=== PATIENT | female | born 1995 | race Caucasian/White ===

== ENCOUNTER 2016-09-15 17:46 | Emergency (ER) | payer MEDICAID ==
[~2016-09-15] VITALS: Ht 165.1 cm; Wt 78.0 kg
[~2016-09-15 17:46] MED LIST: HYDR115S2 PO; PREN1TAB60 PO
[2016-09-15] MEDS ORDERED: LORazepam 2 MG/ML, 1ML IVPush ONE (19:00)
[2016-09-15] MEDS ORDERED: SODIUM CHLORIDE FLUSH 10ML SYR IVF ONE (19:00)
[2016-09-15] MEDS ORDERED: KETOROLAC 30 MG/1 ML IVPush ONE (19:00)
[2016-09-15 19:14] LABS: BLOOD UREA NITROGEN 9 mg/dL (7-18)
[2016-09-15] MEDS ORDERED: KETOROLAC 30 MG/1 ML ONE (19:28)
[2016-09-15] MEDS ORDERED: LORazepam 2 MG/ML, 1ML ONE (19:29)
[2016-09-15 19:46] VITALS: BP 124/73
== END 2016-09-15 20:17 | disposition home or self-care (01) ==
LOC: ED 20:09
DX: O26.891 Other specified pregnancy related conditions, first trimester (principal); M94.0 Chondrocostal junction syndrome [Tietze]
CPT/HCPCS: 36415; 71010; 80048; 82040; 84484; 84703; 85025; 85379; 93005

== ENCOUNTER 2017-08-14 00:12 | Emergency (ER) | payer MEDICAID ==
[~2017-08-14] VITALS: Ht 165.1 cm; Wt 79.5 kg
[2017-08-14 00:39] LABS: MICROSCOPIC AUTO
[2017-08-14 00:40] LABS: CULTURE INDICATED? YES
[2017-08-14 00:49] LABS: HCG UR SG 1.025 (1.003-1.030)
[2017-08-14] MEDS ORDERED: PHENAZOPYRIDINE 200 MG TABLET PO ONE (01:00)
[2017-08-14] MEDS ORDERED: PHENAZOPYRIDINE 200 MG TABLET ONE (01:35)
[2017-08-14 01:36] VITALS: BP 121/82
== END 2017-08-14 01:39 | disposition home or self-care (01) ==
LOC: ED 00:56
DX: R10.30 Lower abdominal pain, unspecified (principal); N39.0 Urinary tract infection, site not specified
CPT/HCPCS: 81001; 81025; 87086; 99284

== ENCOUNTER 2018-07-03 18:44 | Emergency (ER) | payer MEDICAID ==
[~2018-07-03] VITALS: Ht 162.6 cm; Wt 77.3 kg
[2018-07-03 19:19] LABS: BASOPHILS # (AUTO) 0.03 x10^3/uL (0-0.1); BASOPHILS % (AUTO) 0 % (0-1); EOSINOPHILS # (AUTO) 0.14 x10^3/uL (0-0.4); EOSINOPHILS % (AUTO) 1 % (1-7); LYMPHOCYTES # (AUTO) 2.96 x10^3/uL (1-3.4); LYMPHOCYTES % (AUTO) 27 % (22-44); MD NO; MEAN CORPUSCULAR HEMOGLOBIN 26.8 pg (27.0-34.8); MEAN CORPUSCULAR HGB CONC 33.4 g/dL (32.4-35.8); MEAN CORPUSCULAR VOLUME 80.3 fL (80-100); MEAN PLATELET VOLUME 8.5 fL (7.4-10.4); MONOCYTES # (AUTO) 0.43 x10^3/uL (0.2-0.8); MONOCYTES % (AUTO) 4 % (2-9); NEUTROPHILS # (AUTO) 7.54 x10^3/uL (1.8-6.8); NEUTROPHILS % (AUTO) 68 % (42-75); PLATELET COUNT 350 x10^3/uL (130-400); RED BLOOD COUNT 4.77 x10^6/uL (3.82-5.3); RED CELL DISTRIBUTION WIDTH 17.5 % (9.6-15.2)
[2018-07-03 19:30] LABS: ANION GAP 8 mmol/L (5-15); CALCIUM 8.9 mg/dL (8.5-10.1); CHLORIDE 109 mmol/L (98-107); CREATININE 0.63 mg/dL (0.55-1.02)
--- NOTE | 2018-07-03 19:33 | NUR ---
PT AMBULATED TO BR WITHOUT DIFFICULTY. INSTRUCTED ON CLEAN CATCH URINE SAMPLE.
--- NOTE | 2018-07-03 19:55 | NUR ---
RV'WD POC WITH PT, SHE VERBALIZES UNDERSTANDING. REPORTS SOME ABD PAIN AT 6/10.
[2018-07-03 20:03] LABS: MICROSCOPIC NOT IND
[2018-07-03 20:08] LABS: CULTURE INDICATED? NO
[2018-07-03 21:43] VITALS: BP 120/74
--- NOTE | 2018-07-03 21:44 | NUR ---
D/C INSTRUCTIONS, MEDS & F/U APPT RV'WD WITH PT, SHE VERBALIZES UNDERSTANDING. AMBULATED OUT OF ED WITHOUT DIFFICULTY.
== END 2018-07-03 21:46 | disposition home or self-care (01) ==
LOC: ED 21:24
DX: O26.891 Other specified pregnancy related conditions, first trimester (principal); Z3A.01 Less than 8 weeks gestation of pregnancy
CPT/HCPCS: 36415; 76801; 80048; 81003; 82040; 84702; 85025; 86901; 99284

== ENCOUNTER 2018-07-05 18:11 | Emergency (ER) | payer MEDICAID ==
[~2018-07-05] VITALS: Ht 162.6 cm; Wt 77.0 kg
--- NOTE | 2018-07-05 18:43 | NUR ---
Pt reports abd pain starting 2-3 days ago and VB starting today, approx 6 pads used today. Reports aprox 5-6 weeks preg. States she took plan B and had depo shot during this , pt reports abd distention starting today after bleeding started.
--- NOTE | 2018-07-05 19:03 | NUR ---
report received from jill lugo.
--- NOTE | 2018-07-05 19:25 | NUR ---
pt in [facility] now.
--- NOTE | 2018-07-05 19:45 | NUR ---
pt back to room from [facility].
[2018-07-05 20:27] VITALS: BP 118/67
--- NOTE | 2018-07-05 20:39 | NUR ---
pt resting in [facility]. pt's aox4. resps even and unlabored. bp/spo2 monitors in place. call light within reach.
--- NOTE | 2018-07-05 21:15 | NUR ---
pt given dc instructions. pt's aox4. resps even and unlabored. pt amb to dc with steady gait. no acute distress at dc.
== END 2018-07-05 21:16 | disposition home or self-care (01) ==
LOC: ED 18:42
DX: O20.0 Threatened abortion (principal)
CPT/HCPCS: 36415; 76801; 84702; 99284

== ENCOUNTER 2018-07-12 19:49 | Emergency (ER) | payer MEDICAID ==
[~2018-07-12] VITALS: Ht 162.6 cm; Wt 77.7 kg
--- NOTE | 2018-07-12 20:40 | NUR ---
PT IN GOWN IN [facility]. EBONIE CAMARILLO AT BEDSIDE WITH PT AT THIS TIME. PT ATTACHED TO VS MACHINES. VSS. AWAITING NEW ORDERS AT THIS TIME
[2018-07-12] MEDS ORDERED: ONDANSETRON ODT 4 MG PO ONE (21:00)
[2018-07-12 21:05] LABS: BASOPHILS % (AUTO) 1 % (0-1); EOSINOPHILS # (AUTO) 0.17 x10^3/uL (0-0.4); EOSINOPHILS % (AUTO) 1 % (1-7); LYMPHOCYTES # (AUTO) 3.19 x10^3/uL (1-3.4); LYMPHOCYTES % (AUTO) 24 % (22-44); MD NO; MEAN CORPUSCULAR HEMOGLOBIN 26.3 pg (27.0-34.8); MEAN CORPUSCULAR HGB CONC 32.1 g/dL (32.4-35.8); MEAN CORPUSCULAR VOLUME 81.9 fL (80-100); MEAN PLATELET VOLUME 8.8 fL (7.4-10.4); MONOCYTES # (AUTO) 0.88 x10^3/uL (0.2-0.8); MONOCYTES % (AUTO) 7 % (2-9); NEUTROPHILS # (AUTO) 8.95 x10^3/uL (1.8-6.8); NEUTROPHILS % (AUTO) 67 % (42-75); PLATELET COUNT 287 x10^3/uL (130-400); RED BLOOD COUNT 4.57 x10^6/uL (3.82-5.3); RED CELL DISTRIBUTION WIDTH 17.1 % (9.6-15.2)
[2018-07-12 21:16] LABS: ALANINE AMINOTRANSFERASE 21 U/L (12-78); ALBUMIN 3.5 g/dL (3.4-5.0); ANION GAP 6 mmol/L (5-15); CALCIUM 8.9 mg/dL (8.5-10.1); CHLORIDE 111 mmol/L (98-107); CREATININE 0.57 mg/dL (0.55-1.02)
[2018-07-12 21:34] LABS: ALKALINE PHOSPHATASE 56 U/L (45-117); BILIRUBIN,TOTAL 0.1 mg/dL (0.2-1.0); TOTAL PROTEIN 7.1 g/dL (6.4-8.2)
[2018-07-12] MEDS ORDERED: ONDANSETRON ODT 4 MG ONE (21:46)
--- NOTE | 2018-07-12 21:53 | NUR ---
pt medicated per mar.
[2018-07-12 22:47] LABS: MICROSCOPIC AUTO
[2018-07-12 22:49] LABS: CULTURE INDICATED? YES
[2018-07-12 22:52] VITALS: BP 118/71
== END 2018-07-12 23:09 | disposition home or self-care (01) ==
LOC: ED 19:51
DX: O21.0 Mild hyperemesis gravidarum (principal); Z3A.01 Less than 8 weeks gestation of pregnancy
CPT/HCPCS: 36415; 80053; 81001; 84702; 85025; 87086; 93005; 99284; Q0162

== ENCOUNTER 2020-02-06 13:55 | Emergency (ER) | payer MEDICAID ==
[~2020-02-06] VITALS: Ht 162.6 cm; Wt 73.0 kg
[~2020-02-06 13:55] MED LIST changes: +PREN1TAB98 PO
[2020-02-06] MEDS ORDERED: HYDROcodone/APAP 5/325 TABLET PO ONE (15:00)
[2020-02-06] MEDS ORDERED: IBUPROFEN 600 MG TABLET PO ONE (15:00)
[2020-02-06] MEDS ORDERED: IBUPROFEN 600 MG TABLET ONE (15:02)
[2020-02-06] MEDS ORDERED: HYDROcodone/APAP 5/325 TABLET ONE (15:02)
--- NOTE | 2020-02-06 15:06 | NUR ---
First contact, pt back from xray. Medicated for right hip pain per order. Pt a/ox4 NAD.
[2020-02-06 16:08] VITALS: BP 125/74
--- NOTE | 2020-02-06 16:09 | NUR ---
DC HOME WITH RIDE, PT VERBALIZES UNDERSTANDING OF FU/ TO RETURN TO ER IF WORSE OR CONCERNS.
== END 2020-02-06 16:22 | disposition home or self-care (01) ==
LOC: ED 16:14
DX: S33.5XXA Sprain of ligaments of lumbar spine, initial encounter (principal); S70.01XA Contusion of right hip, initial encounter; R51.9 Headache, unspecified; R10.2 Pelvic and perineal pain; X58.XXXA Exposure to other specified factors, initial encounter; Y93.89 Activity, other specified; Y92.488 Other paved roadways as the place of occurrence of the external cause; Y99.8 Other external cause status
CPT/HCPCS: 72110; 72190; 99284

== ENCOUNTER 2020-08-27 10:20 | Observation (INO) | payer MEDICAID ==
[~2020-08-27] VITALS: Ht 162.6 cm; Wt 82.7 kg
[2020-08-27] MEDS ORDERED: SODIUM CITRATE/CITRIC ACID 30 ML UDC PO ONE (10:30)
[2020-08-27] MEDS ORDERED: METOCLOPRAMIDE 5 MG/ML, 2ML IVPush ONE (10:30)
[2020-08-27] MEDS: LACTATED RINGERS 1,000 ML IV SCH ×2 (10:41→13:23)
[2020-08-27 10:49] VITALS: BP 110/66
[2020-08-27 11:05] LABS: BASOPHILS % (AUTO) 0 % (0-1); EOSINOPHILS % (AUTO) 1 % (1-7); LYMPHOCYTES % (AUTO) 22 % (22-44); MEAN CORPUSCULAR HEMOGLOBIN 27.8 pg (27.0-34.8); MEAN CORPUSCULAR HGB CONC 33.5 g/dL (32.4-35.8); MEAN PLATELET VOLUME 9.4 fL (7.4-10.4); MONOCYTES % (AUTO) 6 % (2-9); NEUTROPHILS % (AUTO) 71 % (42-75); PLATELET COUNT 229 x10^3/uL (130-400); RED BLOOD COUNT 4.53 x10^6/uL (3.82-5.3); RED CELL DISTRIBUTION WIDTH 18.8 % (9.6-15.2)
[2020-08-27 11:35] LABS: AMPHETAMINE SCREEN, URINE Negative (Negative); BENZODIAZEPINE SCREEN, URINE Negative (Negative); CANNABINOID SCREEN, URINE Negative (Negative); COCAINE SCREEN, URINE Negative (Negative); METHADONE SCREEN, URINE Negative (Negative); OPIATE SCREEN, URINE Negative (Negative)
[2020-08-27 11:42] LABS: BARBITURATE SCREEN, URINE Negative (Negative)
[2020-08-27] MEDS ORDERED: SODIUM CITRATE/CITRIC ACID 15 ML UDC ONE (11:48)
[2020-08-27] MEDS ORDERED: ACETAMINOPHEN 325 MG TABLET ONE (14:12)
[2020-08-27] MEDS ORDERED: ACETAMINOPHEN 325 MG TABLET PO PRN (14:30)
== END 2020-08-27 19:38 | disposition home or self-care (01) ==
LOC: LDOP 10:20 → LDIP 10:23
PROVIDERS: ADMIT Obstetrics & Gynecology Maternal & Fetal Medicine; ATTEND Obstetrics & Gynecology Maternal & Fetal Medicine
DX: O34.32 Maternal care for cervical incompetence, second trimester (principal); Z20.822 Contact with and (suspected) exposure to COVID-19; O99.322 Drug use complicating pregnancy, second trimester; F12.90 Cannabis use, unspecified, uncomplicated; Z3A.14 14 weeks gestation of pregnancy; Z79.899 Other long term (current) drug therapy
CPT/HCPCS: 36415; 59320; 80307; 85025; 87635; 96361; 96374; G0378; J2765; J7120